=== PATIENT | male | born 1955 | race Caucasian/White ===

== ENCOUNTER 2017-01-21 20:25 | Emergency (ER) | payer MEDICARE ==
--- NOTE | 2017-01-22 10:26 | MRI ---
PRELIMINARY REPORT/[facility]/EMERGENCY AFTER HOURS PROCEDURE: EXAM: MR Lumbar Spine Without Intravenous Contrast CLINICAL HISTORY: 61 years old, male; Pain; Low back pain; Prior surgery; Surgery date: 6+ months; Surgery type: Lami; Patient HX: Pt has had 2 prior lb SX. Most recent in 2009. Pt states he has dgd. 1 1/2 weeks ago pt s tates he started to go numb from the waist down and has been getting worse since. Does not complain o f incontinence. Ordered with contrast but pt refused to continue with exam. Done without. TECHNIQUE: Magnetic resonance images of the lumbar spine without intravenous contrast in multiple planes. COMPARISON: No relevant prior studies available. FINDINGS: Vertebrae: Laminectomies at L4-L5 and L5-S1. Minimal anterolisthesis of L4 on L5 noted No acute fract ure. Spinal cord: Unremarkable. Normal signal. Soft tissues: Unremarkable. DISCS/SPINAL CANAL/NEURAL FORAMINA: L1-L2: Unremarkable. No significant disc disease. No stenosis. L2-L3: Facet hypertrophic changes noted No significant disc disease. No stenosis. L3-L4: Mild to moderate right foraminal stenosis. No central canal stenosis or disc herniation. Facet hypertrophic changes noted. L4-L5: Moderate right and mild left foraminal stenosis secondary to a diffuse disc bulge. No definite disc herniation L5-S1: Minimal disc bulging without significant foraminal stenosis IMPRESSION: Postsurgical changes in the lower lumbar spine as described Disc bulge at L4-L5 with right greater than left foraminal stenosis Right-sided foraminal stenosis at L3-L4 No definite disc herniation detected Thank you for allowing us to participate in the care of your patient. Dictated and Authenticated by: Ashok Dickens MD 01/22/2017 1:16 AM Central Time ([place] & [place]) FINAL REPORT EMERGENCY AFTER HOURS MRI LUMBAR SPINE: Date: 01/22/17 Lumbar vertebra maintain height and alignment. Vertebral body signal is normally maintained. Mild diffuse disc bulge is seen at L4-5 with mild central canal and foraminal stenosis. Postoperative changes at L4-5. I am in agreement with the preliminary report issued by Debra. POS: [facility]
--- NOTE | 2017-01-22 10:27 | MRI ---
PRELIMINARY REPORT/[facility]/EMERGENCY AFTER HOURS PROCEDURE: EXAM: MR Thoracic Spine Without Intravenous Contrast CLINICAL HISTORY: 61 years old, male; Pain; Pain in thoracic spine; Additional info: Pt has had 2 prior lb SX. Most rec ent in 2009. Pt states he has dgd. 1 1/2 weeks ago pt states he started to go numb from the waist teodoro n and has been getting worse since. Does not complain of incontinence. Ordered with contrast but pt r efused to continue with exam. Done without. Pt states he does not have pain in his upper back. TECHNIQUE: Magnetic resonance images of the thoracic spine without intravenous contrast in multiple planes. COMPARISON: No relevant prior studies available. FINDINGS: Vertebrae: Minimal discogenic plate signal changes at T9 No acute fracture. Discs/spinal canal/neural foramina: No acute findings. No significant disc disease. No spinal canal stenosis. Spinal cord: Unremarkable. Normal signal. Soft tissues: Unremarkable. IMPRESSION: No definite acute process detected Thank you for allowing us to participate in the care of your patient. Dictated and Authenticated by: Ashok Dickens MD 01/22/2017 1:16 AM Central Time ([place] & [place]) FINAL REPORT EMERGENCY AFTER HOURS MRI THORACIC SPINE WITHOUT CONTRAST: Date: 01/22/17 Multiplanar, multisequential imaging of thoracic spine obtained. Thoracic vertebra maintain normal height and alignment. Vertebral body signal is normal. No disc bulg e or protrusion. No central canal or foraminal stenosis. Thoracic cord is unremarkable. No acute proc ess identified. I am in agreement with the preliminary report issued by Debra. POS: [facility]
== END 2017-01-22 02:18 | disposition home or self-care (01) ==
LOC: ERS 20:25
DX: M48.061 Spinal stenosis, lumbar region without neurogenic claudication (principal); E78.5 Hyperlipidemia, unspecified; F41.9 Anxiety disorder, unspecified; F17.210 Nicotine dependence, cigarettes, uncomplicated; Z71.6 Tobacco abuse counseling
CPT/HCPCS: 72146; 72148; 99406

== ENCOUNTER 2017-04-15 10:59 | Observation (INO) | payer MEDICARE ==
[2017-04-15 11:46] LABS: #Basophils 0.1 thou/uL (0.0-0.2); #Eosinphils 0.2 thou/uL (0.0-0.7); #Lymphocytes 3.1 thou/uL (1.20-3.40); #Monocytes 0.7 thou/uL (0.11-0.59); #Neutrophils 4.3 thou/uL (1.40-6.50); %Basophils 1.3 % (0.0-1.0); %Eosinophils 2.6 % (0.0-10.0); %Lymphocytes 36.7 % (21.0-51.0); %Monocytes 8.5 % (0.0-10.0); Hemoglobin 13.5 g/dL (14.0-18.0); Mean Corpuscular HGB CONC 32.1 g/dL (32.0-36.0); Mean Corpuscular Hemoglobin 28.8 pg (27.0-31.0); Mean Corpuscular Volume 89.9 fl (80.0-94.0); Mean Platelet Volume 6.7 fL (7.4-10.4); Platelet Count 262 thou/uL (130-400); RBC Distribution Width 12.5 % (11.5-14.5); Red Blood Cell (RBC) Count 4.67 mill/uL (4.70-6.10); White Blood Cell (WBC) Count 8.4 thou/uL (4.8-10.8)
[2017-04-15 11:51] LABS: PTT 27.2 SEC (22.9-36.1)
--- NOTE | 2017-04-15 11:59 | RAD ---
PORTABLE CHEST: History: Chest pain Comparison: 11-19-15 FINDINGS: Heart size and mediastinum are within normal limits. The lungs are clear of infiltrates. No significa nt bony findings. IMPRESSION: No active intrathoracic disease. POS: [facility]
[2017-04-15 12:18] LABS: ALT (SGPT) 24 U/L (8-55); AST (SGOT) 15 U/L (5-34); Alkaline Phosphatase 73 U/L (40-150); Anion Gap 13 mmol/L (10-20); BUN (Urea Nitrogen) 12 mg/dL (8.4-25.7); Bilirubin, Total 0.2 mg/dL (0.2-1.2); CK (CPK) 82 U/L (30-200); Calc. Creatinine Clearance 0 mL/min (70-130); Calcium 9.2 mg/dL (7.8-10.44); Carbon Dioxide 21 mmol/L (23-31); Chloride 108 mmol/L (98-107); Estimated GFR-MDRD 85; Globulin 2.9 g/dL (2.4-3.5); Glucose 89 mg/dL (80-115); Potassium 4.3 mmol/L (3.5-5.1); Protein, Total 6.9 g/dL (5.8-8.1); Sodium 138 mmol/L (136-145)
[2017-04-15 12:20] LABS: CKMB 0.7 ng/mL (0-6.6); Troponin I Less than 0.010 ng/mL (< 0.028)
--- NOTE | 2017-04-15 16:51 | PDOC.FPRHP ---
Addendum entered and electronically signed by Cyn Friedman DO 17:08: Will also order a chemical stress test in the morning, and keep the patient NPO at midnight, and repeat CE x3. Original Note: - History of Present Illness Chief Complaint: Left Chest pain History of Present Illness: This is a 61 yo WM w/ PMH tobacco abuse, HLD presents w/ 1 day history of left sided chest pain that radiates to his left neck, and left arm. No associated with diaphoresis, nausea or vomiting. Pain lasted about 45 minutes. Nitro did not help, but morphine has. Never had pain like this before. Pain is sharp, shooting in nature. Has had a cough dry that started 2 days ago. No fevers, chills or sick contacts. Sitting forward makes the pain worse. Laying down reduces the pain. + LE swelling in ankle for the past week. No increased weight or swelling otherwise. ED Course: In ED, he was given Morphine 4mg IVP and ASA 324mg. His pain improved, but he was admitted to r/o ACS. - Allergies/Adverse Reactions Allergies Allergy/AdvReac Type Severity Reaction Status Date / Time oxycodone HCl Allergy Verified 11/19/15 12:09 [From OxyContin] - History PMHx: HLD, Marijuana, Tobacco abuse PSHx: Laminectomy, L forearm, R ankle fx FHx: Mom and Dad CO's in 60's. Social: Tobacco abuse x50yrs, Denies any alcohol. Hx marijuana abuse - Review of Systems General: denies: fever/chills, weight/appetite/sleep changes Eyes: denies: eye pain, vision changes ENT: denies: nasal congestion, rhinorrhea Respiratory: reports: cough, exercise intolerance. denies: congestion, shortness of breath Cardiovascular: reports: chest pain, edema. denies: palpitation, paroxysmal nocturnal dyspnea, orthopnea Gastrointestinal: denies: nausea, vomiting, diarrhea, abdominal pain Skin: denies: rashes, lesions Musculoskeletal: reports: pain (LBP chronic), arthritis/arthralgias Neurological: reports: weakness (LE chronic). denies: syncope - Vital signs BP: [127/76] HR: [76] RR: [18] Tmax: [98.5] Pox: [97]% on [RA] Wt: [83] - Physical Exam Constitutional: NAD, awake, alert and oriented, well developed HEENT: normocephalic and atraumatic, PERRLA, EOMI, conjunctiva clear, no scleral icterus, other (Poor dentition. Hard of hearing) Neck: supple, trachea midline, no JVD, no bruits Heart: RRR, normal S1/S2, no murmurs/rubs/gallops, other (Distant heart sounds) Lungs: CTAB, no respiratory distress, good air movement Abdomen: soft, non-tender, no masses/distention Neurological: CN II-XII intact Heme/Lymphatic: no unusual bruising or bleeding, no purpura Psychiatric: normal mood and affect, good judgment and insight FMR H&P: Results - Labs Result Diagrams: 04/15/17 11:36 04/15/17 11:36 Lab results: WBC 8.4 thou/uL (4.8-10.8) 04/15/17 11:36 Hgb 13.5 g/dL (14.0-18.0) L 04/15/17 11:36 Hct 42.0 % (42.0-52.0) 04/15/17 11:36 MCV 89.9 fl (80.0-94.0) 04/15/17 11:36 Plt Count 262 thou/uL (130-400) 04/15/17 11:36 Neutrophils % 51.0 % (42.0-75.0) 04/15/17 11:36 Sodium 138 mmol/L (136-145) 04/15/17 11:36 Potassium 4.3 mmol/L (3.5-5.1) 04/15/17 11:36 Chloride 108 mmol/L (98-107) H 04/15/17 11:36 Carbon Dioxide 21 mmol/L (23-31) L 04/15/17 11:36 BUN 12 mg/dL (8.4-25.7) 04/15/17 11:36 Creatinine 0.91 mg/dL (0.6-1.3) 04/15/17 11:36 Glucose 89 mg/dL (80-115) 04/15/17 11:36 Calcium 9.2 mg/dL (7.8-10.44) 04/15/17 11:36 Total Bilirubin 0.2 mg/dL (0.2-1.2) 04/15/17 11:36 AST 15 U/L (5-34) 04/15/17 11:36 ALT 24 U/L (8-55) 04/15/17 11:36 Alkaline Phosphatase 73 U/L (40-150) 04/15/17 11:36 Creatine Kinase 82 U/L (30-200) 04/15/17 11:36 CK-MB (CK-2) 0.7 ng/mL (0-6.6) 04/15/17 11:36 Serum Total Protein 6.9 g/dL (5.8-8.1) 04/15/17 11:36 Albumin 4.0 g/dL (3.4-4.8) 04/15/17 11:36 Additional comment: CK 82, CKMB 0.7, Trop I < 0.01 EKG: NSR Rate 85, QTc 454 CXR - No acute process FMR H&P: A/P - Problem List (1) Atypical chest pain Current Visit: Yes Status: Acute Code(s): R07.89 - OTHER CHEST PAIN Assessment and Plan: Will r/o ACS vs muscleskeletal pain vs COPD. ASA, Statin, FLP in am, ECHO, BNP as patient is also complaining of new onset ankle swelling over the past week and has never had an ECHO done in the past. Had a stress test that was normal in 2016, however patient is a smoker, and both parents had an CO in their 60's. His BG here has been normal, so will have him f/u w/ PCP if any concerns for diabetes (2) COPD (chronic obstructive pulmonary disease) Current Visit: Yes Status: Chronic Assessment and Plan: May be contributing to his chest pain, as had increased cough over the past 2 days. Will start Predinisone for 5 days, and Duonebs. No indication of infection at this point so will hold off antibiotics for now. (3) Hypercholesteremia Current Visit: No Status: Chronic Code(s): E78.0 - PURE HYPERCHOLESTEROLEMIA * DO NOT USE * Assessment and Plan: Will start statin. F/u with FLP in AM and risk stratify at that time. (4) Tobacco abuse Current Visit: Yes Status: Chronic Code(s): Z72.0 - TOBACCO USE Assessment and Plan: And [employer] on cessation. (5) Back pain Current Visit: Yes Status: Chronic Code(s): M54.9 - DORSALGIA, UNSPECIFIED Assessment and Plan: S/p Lamniectomy. Chronic back pain. Will give tylenol PRN. No acute changes at this time. F/u with PCP outpatient for further workup if indicated. Attending Addendum - Attending Addendum Date/Time: 04/15/171902 I personally evaluated the patient and discussed the management with Dr. Wadsworth I agree with the History, Examination, Assessment and Plan documented above with any addition or exceptions noted below. 61 yo male with history of HLD, tobacco use, HTN, BMI 31, and family hx of heart dz presents to ER for evaluation of chest pain. Patient reports chest pain left side. Provoked and reproducible with movement. Notes increase reflux recently after completing steroid trevor due to MSK complaints. Denies recent trauma. Pain improved with lying down flat. No previous episodes. Has not been relieved with anything from ER. Pmhx, sxhx, sohx, famhx reviewed VS reviewed -- Mild range HTN noted Labs reviewed -- CE negative x2 Images reviewed -- EKG with mild early repolarization changes to inferior leads. Borderline LVH. Otherwise normal EKG. CXR reviewed. PE as noted but with mild tenderness along patient's left shoulder. Pain with some elevation of left shoulder as well. No s/sx of any distress otherwise. Lungs clear. Cardiac exam benign. A/P: Will obs overnight. Treat MSK pain and GERD symptoms. Possible COPD exacerbation noted at time of ER evaluation. At present patient is s/p breathing treatment. Adamant about not wanting to receive breathing treatments every 4 hours. Discussed options. Patient would like to request as needed. EKG prn. Continuous tele monitoring. Due to risk factors and Heart score of 5 will stress in AM. Monitor and treat co-morbidities appropriately. Leila
[2017-04-15] MEDS ORDERED: Nitroglycerin 0.4 MG TAB (25 Tab Bottle) PO PRN (18:01)
[2017-04-15] MEDS ORDERED: Senokot 8.6 MG TAB PO PRN (18:01)
[2017-04-15] MEDS ORDERED: Acetaminophen 325 MG TAB PO PRN (18:01)
[2017-04-15] MEDS ORDERED: Cyclobenzaprine 10 MG TAB PO SCH (19:02)
[2017-04-15 20:15] LABS: Troponin I Less than 0.010 ng/mL (< 0.028)
[2017-04-15] MEDS ORDERED: Famotidine 20 MG TAB PO SCH (21:00)
[2017-04-15] MEDS ORDERED: Atorvastatin Calcium 40 MG TAB PO SCH (21:00)
[2017-04-15 21:28] VITALS: BMI 29.8
[2017-04-16 04:33] LABS: #Basophils 0.1 thou/uL (0.0-0.2); #Eosinphils 0.2 thou/uL (0.0-0.7); #Lymphocytes 2.7 thou/uL (1.20-3.40); #Monocytes 0.6 thou/uL (0.11-0.59); #Neutrophils 4.4 thou/uL (1.40-6.50); %Eosinophils 2.9 % (0.0-10.0); %Lymphocytes 33.8 % (21.0-51.0); %Monocytes 7.4 % (0.0-10.0); Hemoglobin 12.8 g/dL (14.0-18.0); Mean Corpuscular HGB CONC 33.1 g/dL (32.0-36.0); Mean Corpuscular Hemoglobin 29.4 pg (27.0-31.0); Mean Corpuscular Volume 88.7 fl (80.0-94.0); Mean Platelet Volume 6.7 fL (7.4-10.4); Platelet Count 256 thou/uL (130-400); RBC Distribution Width 12.5 % (11.5-14.5); Red Blood Cell (RBC) Count 4.35 mill/uL (4.70-6.10)
[2017-04-16 04:45] LABS: Anion Gap 11 mmol/L (10-20); BUN (Urea Nitrogen) 10 mg/dL (8.4-25.7); Calc. Creatinine Clearance 105 mL/min (70-130); Calcium 8.8 mg/dL (7.8-10.44); Carbon Dioxide 22 mmol/L (23-31); Chloride 110 mmol/L (98-107); Cholesterol 196 mg/dl (< 200 Desired); Estimated GFR-MDRD 88; Glucose 93 mg/dL (80-115); HDL Cholesterol 39 mg/dL (>60 Neg Risk); LDL Cholesterol, Calculated 122 mg/dL; Sodium 139 mmol/L (136-145); Triglycerides 173 mg/dL (Less than 150)
--- NOTE | 2017-04-16 06:08 | PDOC.FM ---
- Subjective Subjective: Pt still reports having left sided chest pain. Denies any acute events overnight. Denies any fever, chills. denies any SOB. Denies any recent trauma or pulling anything. Says he has had heartburn in the past but says this doesn' t feel like it. No other concerns at this time. - Objective MAR Reviewed: Yes Vital Signs & Weight: Vital Signs (12 hours) Temp Pulse Resp BP Pulse Ox 04/15/17 20:14 97.6 F 76 18 04/15/17 19:15 97.6 F 76 18 134/72 96 04/15/17 18:15 77 16 100 04/15/17 18:11 97.5 F L 78 24 H 149/69 H 100 Weight Weight 83.915 kg Result Diagrams: 04/16/17 04:02 04/16/17 04:02 EKG Reviewed by me: Yes Radiology Reviewed by me: Yes (No active intrathroacic dz) <Néstor Sierra - Last Filed: 04/16/17 08:41> - Objective Vital Signs & Weight: Vital Signs (12 hours) Temp Pulse Resp BP Pulse Ox 04/16/17 12:22 98.2 F 101 H 24 H 146/72 H 98 04/16/17 08:35 98.0 F 76 20 04/16/17 07:29 98.0 F 76 20 119/72 98 Weight Weight 83.915 kg I&O: 04/15/17 04/16/17 04/17/17 06:59 06:59 06:59 Intake Total 240 825 Balance 240 825 Result Diagrams: 04/16/17 04:02 04/16/17 04:02 <Ava Mckeon - Last Filed: 04/16/17 18:19> Phys Exam - Physical Examination Constitutional: NAD HEENT: PERRLA, moist MMs Neck: no nodes, no JVD, supple, full ROM Respiratory: no wheezing, no rhonchi Mild rales auscultated Cardiovascular: RRR, no significant murmur, no rub Gastrointestinal: soft, non-tender, no distention, positive bowel sounds Musculoskeletal: no edema, pulses present Neurological: non-focal, normal sensation, moves all 4 limbs Lymphatic: no nodes Psychiatric: normal affect, A&O x 3 Skin: no rash, normal turgor, cap refill <2 seconds <Néstor Sierra - Last Filed: 04/16/17 08:41> Dx/Plan (1) Atypical chest pain Code(s): R07.89 - OTHER CHEST PAIN Status: Acute (2) Back pain Code(s): M54.9 - DORSALGIA, UNSPECIFIED Status: Chronic (3) COPD (chronic obstructive pulmonary disease) Status: Chronic (4) Tobacco abuse Code(s): Z72.0 - TOBACCO USE Status: Chronic (5) Hypercholesteremia Code(s): E78.0 - PURE HYPERCHOLESTEROLEMIA * DO NOT USE * Status: Chronic - Plan Plan: Atypical Chest Pain -Pt having l. side chest pain radiates to neck -Troponins x3 negative. -FLP, HDL a little low. Started on a statin -Stress Test pending today. COPD -Could be causing pain -Started on steroid HLD -Started on Statin -FLP, HDL a little low Tobacco Abuse -counseled on cessation Back pain -s/p laminectomy. Tylenol prn. f/u outpatient for pain management <Néstor Sierra - Last Filed: 04/16/17 08:41> Attending Addendum - Attending Addendum Date/Time: 04/16/171816 I personally evaluated the patient and discussed the management with Dr. Sierra. I agree with the History, Examination, Assessment and Plan documented above with any addition or exceptions noted below. The patient's chest pain appears musculoskeletal in nature. Will get stress test. If normal will likely discharge. <Ava Mckeon - Last Filed: 04/16/17 18:19>
[2017-04-16] MEDS ORDERED: predniSONE 20 MG TAB PO SCH (08:00)
[2017-04-16] MEDS ORDERED: Aspirin 325 MG TAB PO SCH (09:00)
[2017-04-16] MEDS ORDERED: Enoxaparin Sodium 40 MG/0.4 ML SYRINGE SC SCH (09:00)
[2017-04-16] MEDS ORDERED: Regadenoson 0.4 MG/5 ML SYRINGE ONE (11:33)
[2017-04-16 12:24] VITALS: BP 146/72; TEMP 98.2
--- NOTE | 2017-04-16 13:03 | NM ---
MYOCARDIAL PERFUSION SCAN: Patient was given 9.5 mCi Technetium 99M Sestamibi for resting imaging and 27 mCi Technetium 99M Sest amibi for stress imaging. Patient was stressed according to Lexiscan protocol. Indications: Chest pain. Technique: Left ventricle was imaged with SPECT imaging. CT attenuation images were obtained. FINDINGS: On the non-attenuation images there is symmetric loss of activity involving the inferior wall. This c orrects on attenuation with attenuation correction and there is no defect seen on this attenuated cor rection stress images. Wall motion appears normal. The ejection fraction is recorded at 70%. IMPRESSION: No evidence of reversible ischemia. POS: [facility]
--- NOTE | 2017-04-17 13:34 | DIS-2 ---
DATE OF ADMISSION: 04/15/2017 DATE OF DISCHARGE: 04/16/2017 ADMITTING DOCTOR: Enriqueta Velez M.D. DISCHARGE DOCTOR: Ava Mckeon M.D. CONSULTS: None. PROCEDURES: None. IMAGING: Chest x-ray on 04/15/2017 showed no active intrathoracic disease. Had a stress test nuclea r medicine showed no evidence of reversible ischemia. Ejection fraction at 70%. DISCHARGE MEDICATIONS: Include atorvastatin 40 mg p.o. at night, ibuprofen 800 mg q.6 hours as neede d, DuoNebs 3 mL nebulizers as needed, pantoprazole 40 mg p.o. nightly, prednisone 40 mg p.o. for 4 mo re days. DISCONTINUED MEDICATIONS: No medicines discontinued. PRIMARY DIAGNOSES: Include: 1. Atypical chest pain. 2. Chronic obstructive pulmonary disease. 3. Hyperlipidemia. 4. Tobacco abuse. 5. Back pain. HISTORY OF PRESENT ILLNESS AND HOSPITAL COURSE: A 61-year-old with history of tobacco abuse who pres ented with 1 day history of left-sided chest pain that radiated to his left neck and left arm. No as sociated diaphoresis, nausea or vomiting. It last about 45 minutes, nitro did not help, but morphine did. The pain is sharp and shooting. He said he has had a dry cough for about the last few days, h as a history of hyperlipidemia. We suspected COPD in him. Labs were normal. No elevated white bloo d cell count. Troponins trended less than 0.01 x3. Cholesterol was 196, LDL was 122, and HDL was lo w at 39. No other lab abnormalities noted. Chest x-ray read above. We did a cardiac rule out. Str ess test was negative. At this time, we suspected with his long smoking history that he likely has s ome underlying chronic obstructive pulmonary disease. We gave him a little course of a steroid burst to see if that helped, also recommended scheduled Tylenol and ibuprofen to help with pain. I am rec ommending followup and get observed for COPD, tobacco abuse x50 years. DISPOSITION: Stable. DISCHARGE INSTRUCTIONS: 1. Discharge location: Home. 2. Activity: Activity as tolerated. 3. Diet: Heart healthy diet. 4. Followup: Will need to follow up with his primary care physician within 14 days. Recommend that he get tested for COPD.
== END 2017-04-16 14:12 | disposition home or self-care (01) ==
LOC: ERS 10:59 → 2SW 15:34
PROVIDERS: ADMIT Family Medicine; ATTEND Family Medicine
DX: R07.89 Other chest pain (principal); J44.9 Chronic obstructive pulmonary disease, unspecified; E78.5 Hyperlipidemia, unspecified; F17.210 Nicotine dependence, cigarettes, uncomplicated; M54.9 Dorsalgia, unspecified; Z88.5 Allergy status to narcotic agent
CPT/HCPCS: 71045; 78452; 80048; 80053; 80061; 82550; 82553; 83880; 84484 ×2; 85025 ×2; 85610; 85730; 93005; 93017; 94640; 94760 ×2; 96374; 99285; A9500; G0378 ×2; 36415; A4216; J1650; J2270; J2785; J7506; J7620

== ENCOUNTER 2022-07-02 14:48 | Outpatient (CLI) | payer OTHER ==
[~2022-07-02 14:48] MED LIST: Iopamidol 370 76% 100 ML VIAL ONE
== END 2022-07-02 14:49 | disposition home or self-care (01) ==
LOC: CT 14:48
PROVIDERS: ATTEND Thoracic Surgery (Cardiothoracic Vascular Surgery)
DX: I65.23 Occlusion and stenosis of bilateral carotid arteries (principal)
CPT/HCPCS: 70498; 82565